=== PATIENT | male | born 1945 | race American Indian/Alaskan Native ===

== ENCOUNTER 2019-08-02 19:55 | Emergency (ER) | payer MEDICARE, OTHER ==
[2019-08-02 20:08] VITALS: BP 189/87; PULSE 91
[2019-08-02] MEDS ORDERED: Lidocaine 1% with EPINEPHrine 1:100,000 50 ML MDV INJECT ONE (20:08)
[2019-08-02] MEDS ORDERED: Bacitracin Oint 1 GM U/D Packet TOP ONE (20:08)
[2019-08-02] MEDS ORDERED: Acetaminophen/oxyCODONE 325-5 MG Tab PO ONE (20:09)
--- NOTE | 2019-08-02 20:12 | EDM.PDOC ---
ED HPI GENERAL MEDICAL PROBLEM - General Chief Complaint: Upper Extremity Injury/Pain Stated Complaint: FALL,HURT RT SHOULDER,CUT ON ELBOW Time Seen by Provider: 08/02/19 20:05 Source of Information: Reports: Patient History Limitations: Reports: No Limitations - History of Present Illness INITIAL COMMENTS - FREE TEXT/NARRATIVE: Lambert is a 74 year old male, DT up to date, tripped over daughter's dog and fell, struck right elbow in door jam sustaining a laceration and jammed right shoulder when he fell, c/o right shoulder pain. Denies hitting head, neck or back pain. Hasn't taken anything for pain, shoulder pain is worse with movement, especially with arm above head. Onset: Today Onset Time: 18:00 Right Shoulder Pain Score (Numeric/FACES): 3 - Related Data Allergies Allergy/AdvReac Type Severity Reaction Status Date / Time No Known Allergies Allergy Verified 08/02/19 20:08 Home Meds: Home Meds Doxazosin Mesylate 2 mg PO BEDTIME 12/28/12 [History] Insulin Detemir [Levemir] 80 units SUBCUT BEDTIME 12/28/12 [History] Lisinopril 10 mg PO DAILY 12/28/12 [History] Naproxen [Naprosyn] 500 mg PO BID 12/28/12 [History] Simvastatin 10 mg PO DAILY 12/28/12 [History] Gabapentin [Neurontin] 600 mg PO BID 01/31/13 [History] Baclofen 10 mg PO BID 12/18/18 [History] valACYclovir [Valtrex] 1,000 mg PO TID #21 tab 12/18/18 [Rx] Insulin Aspart [NovoLOG] 1 unit SQ ASDIRECTED 08/02/19 [History] Past Medical History HEENT History: Reports: Impaired Vision Cardiovascular History: Reports: High Cholesterol, Hypertension Gastrointestinal History: Reports: None Musculoskeletal History: Reports: None Neurological History: Reports: Other (See Below) Endocrine/Metabolic History: Reports: Diabetes, Type II Hematologic History: Reports: Blood Transfusion(s) - Past Surgical History Head Surgeries/Procedures: Reports: None HEENT Surgical History: Reports: Cataract Surgery Cardiovascular Surgical History: Reports: None GI Surgical History: Reports: Cholecystectomy, Colonoscopy Endocrine Surgical History: Reports: None Neurological Surgical History: Reports: None Musculoskeletal Surgical History: Reports: Shoulder Surgery Dermatological Surgical History: Reports: None Social & Family History - Caffeine Use Caffeine Use: Reports: Coffee Review of Systems - Review of Systems Review Of Systems: Comprehensive ROS is negative, except as noted in HPI. ED EXAM, GENERAL - Physical Exam Exam: See Below Exam Limited By: No Limitations General Appearance: Alert, WD/WN, No Apparent Distress Head: Atraumatic Neck: Normal Inspection, Supple, Non-Tender, Full Range of Motion. No: Tender Midline Respiratory/Chest: No Respiratory Distress Cardiovascular: Regular Rate, Rhythm, Other (Hypertension) Back Exam: Normal Inspection Extremities: Normal Inspection, Limited Range of Motion, Other (Tenderness to right humeral head to right upper shoulder, limited RoM with arm above head, radial pulses intact, strength 4/5 secondary to pain) Neurological: Alert, Oriented Skin Exam: Warm, Other (2.5 cm jagged laceration to right elbow) Lymphatic: No Adenopathy ED TRAUMA EXTREMITY PROCEDURES - Laceration/Wound Repair Right Elbow Lac/Wound Length In cm: 2.5 Appearance: Subcutaneous Distal NVT: Neuro & Vascular Intact, No Tendon Injury Anesthetic Type: Local Local Anesthesia - Lidocaine (Xylocaine): 1% with EPI Local Anesthetic Volume: 5cc Skin Prep: Chlorhexidine (Hibiciens), Saline Exploration/Debridement/Repair: No Foreign Material Found Closed With: Sutures Suture Size: 4-0 # of Sutures: 6 Suture Type: Prolene Course - Vital Signs Last Recorded V/S: Last Vital Signs Temp 36.7 C 08/02/19 20:08 Pulse 91 08/02/19 20:08 Resp 16 08/02/19 20:08 BP 189/87 H 08/02/19 20:08 Pulse Ox 99 08/02/19 20:08 Lambert is a 74 year old male, presents to the ED with right shoulder pain and right elbow laceration s/p fall. Please refer to HPI and focused exam. Elbow laceration repaired as noted in procedure note. Patient was given Percocet here for pain. Shoulder x-ray obtained no fracture appreciated. Keflex for infection prophylaxis given depth and nature of laceration. Oxycodone for severe pain if Tylenol ineffective. Patient placed in sling, instructed to follow up with PCP in one week for recheck of should contusion and suture removal. Reasons to return to the ED discussed. Patient agreeable to plan of care and discharged with a bus driver supervisor. - Orders/Labs/Meds Orders: Active Orders 24 hr Category Date Time Status Vaccines to be Administered [RC] PER UNIT ROUTINE Care 08/02/19 20:16 Active Shoulder Comp Rt [CR] Stat Exams 08/02/19 20:09 Taken Meds: Medications Discontinued Medications Generic Name Dose Route Start Last Admin Trade Name Abbey PRN Reason Stop Dose Admin Bacitracin 1 dose 08/02/19 20:08 Bacitracin Oint 1 Gm TOP 08/02/19 20:09 ONETIME ONE Diphtheria/Tetanus/Acell Pertussis 0.5 ml 08/02/19 20:16 Adacel IM 08/02/19 20:17 .ONCE ONE Lidocaine/Epinephrine 5 ml 08/02/19 20:08 Xylocaine 1% With Epinephrine 1:100,000 INJECT 08/02/19 20:09 ONETIME ONE Oxycodone/Acetaminophen 2 tab 08/02/19 20:09 Percocet 325-5 Mg PO 08/02/19 20:10 ONETIME ONE Departure - Departure Time of Disposition: 21:00 Disposition: Home, Self-Care 01 Condition: Good Clinical Impression: Contusion of shoulder, right Qualifiers: Encounter type: initial encounter Qualified Code(s): S40.011A - Contusion of right shoulder, initial encounter Laceration of right elbow Qualifiers: Encounter type: initial encounter Qualified Code(s): S51.011A - Laceration without foreign body of right elbow, initial encounter - Discharge Information Instructions: Laceration Care, Adult, Wound Care, Adult, How To Use a Sling, [id number], Contusion, [id number] Referrals: PCP,None [Primary Care Provider] - Forms: ED Department Discharge Additional Instructions: Wear sling for one week. Tylenol for pain, 650 mg every 4 hours as needed. Percocet for severe pain, no driving, this is a narcotic, may make you constipated, you can take colace if needed. Percocet does contain Tylenol, do not exceed more than 4,000 mg of Tylenol in a 24 hour period. Follow up with primary care in one week for suture removal and to have your shoulder rechecked. Start the antibiotics, Keflex, tonight to prevent infection at laceration site. Return here with any concerns or worsening symptoms. Sepsis Event Note (ED) - Evaluation Sepsis Screening Result: No Definite Risk - Focused Exam Vital Signs: Vital Signs Temp Pulse Resp BP Pulse Ox 08/02/19 20:08 36.7 C 91 16 189/87 H 99 08/02/19 20:06 36.7 C 91 16 189/87 H 99 - My Orders Last 24 Hours: My Active Orders 08/02/19 20:09 Shoulder Comp Rt [CR] Stat 08/02/19 20:16 Vaccines to be Administered [RC] PER UNIT ROUTINE - Assessment/Plan Last 24 Hours: My Active Orders 08/02/19 20:09 Shoulder Comp Rt [CR] Stat 08/02/19 20:16 Vaccines to be Administered [RC] PER UNIT ROUTINE
[2019-08-02] MEDS ORDERED: Diphtheria,Pertussis(Acell),Tetanus Vaccine 0.5 ML SDV IM ONE (20:16)
--- NOTE | 2019-08-04 10:00 | CR ---
Shoulder Comp Rt CLINICAL HISTORY: Fall, pain FINDINGS: There is moderate spurring at the AC joint. The there is some mild irregularity of the distal clavicle. This appearance is similar to a chest x-ray from 2015. The there is limited evaluation of the proximal humerus due to inability to position the patient. The there may be some foreshortening of the humeral neck. There is some cephalic the subluxation of the humerus which may be due to joint laxity. There are ossifications of the region of the coracoid process. This could be from old injury. This may represent loose body. IMPRESSION: Deformity AC joint is likely due to spurring. It appears similar to chest x-ray from 2015 Deformity the proximal humerus some of this is projectional. Humeral neck fracture is not excluded Superior subluxation of the humeral head suggests joint laxity. If clinically relevant short-term repeat study should be considered.
== END 2019-08-02 21:31 | disposition home or self-care (01) ==
LOC: JP.ED 19:55
DX: S51.011A Laceration without foreign body of right elbow, initial encounter (principal); S40.011A Contusion of right shoulder, initial encounter; E78.00 Pure hypercholesterolemia, unspecified; I10 Essential (primary) hypertension; E11.9 Type 2 diabetes mellitus without complications; Z79.4 Long term (current) use of insulin; Z23 Encounter for immunization; Z79.899 Other long term (current) drug therapy; W01.190A Fall on same level from slipping, tripping and stumbling with subsequent striking against furniture, initial encounter
CPT/HCPCS: 12001; 73030; 90471; 90715; 99283; A9270

== ENCOUNTER 2019-08-16 15:48 | Emergency (ER) | payer MEDICARE, OTHER ==
[2019-08-16 16:03] VITALS: BP 135/68; PULSE 66
--- NOTE | 2019-08-16 16:19 | EDM.PDOC ---
ED HPI GENERAL MEDICAL PROBLEM - General Chief Complaint: General Stated Complaint: REMOVE STICHES ELBOW Time Seen by Provider: 08/16/19 16:18 Source of Information: Reports: Patient - Related Data Allergies Allergy/AdvReac Type Severity Reaction Status Date / Time No Known Allergies Allergy Verified 08/16/19 16:08 Home Meds: Home Meds Doxazosin Mesylate 2 mg PO BEDTIME 12/28/12 [History] Insulin Detemir [Levemir] 80 units SUBCUT BEDTIME 12/28/12 [History] Lisinopril 10 mg PO DAILY 12/28/12 [History] Naproxen [Naprosyn] 500 mg PO BID 12/28/12 [History] Simvastatin 10 mg PO DAILY 12/28/12 [History] Gabapentin [Neurontin] 600 mg PO BID 01/31/13 [History] Baclofen 10 mg PO BID 12/18/18 [History] valACYclovir [Valtrex] 1,000 mg PO TID #21 tab 12/18/18 [Rx] Insulin Aspart [NovoLOG] 1 unit SQ ASDIRECTED 08/02/19 [History] Past Medical History HEENT History: Reports: Impaired Vision Cardiovascular History: Reports: High Cholesterol, Hypertension Gastrointestinal History: Reports: None Musculoskeletal History: Reports: None Neurological History: Reports: Other (See Below) Other Neuro History: aneurysm-"keeping an eye on it" Endocrine/Metabolic History: Reports: Diabetes, Type II Hematologic History: Reports: Blood Transfusion(s) - Past Surgical History Head Surgeries/Procedures: Reports: None HEENT Surgical History: Reports: Cataract Surgery Cardiovascular Surgical History: Reports: None GI Surgical History: Reports: Cholecystectomy, Colonoscopy Endocrine Surgical History: Reports: None Neurological Surgical History: Reports: None Musculoskeletal Surgical History: Reports: Shoulder Surgery Dermatological Surgical History: Reports: None Social & Family History - Tobacco Use Smoking Status *Q: Never Smoker - Caffeine Use Caffeine Use: Reports: Coffee - Recreational Drug Use Recreational Drug Use: No ED ROS GENERAL - Review of Systems Review Of Systems: Comprehensive ROS is negative, except as noted in HPI. ED EXAM, GENERAL - Physical Exam Exam: See Below Exam Limited By: No Limitations General Appearance: Alert, WD/WN, No Apparent Distress Eye Exam: Bilateral Eye: EOMI Ears: Normal External Exam, Hearing Loss Nose: Normal Inspection Throat/Mouth: Normal Inspection Neck: Normal Inspection, Full Range of Motion Respiratory/Chest: No Respiratory Distress Extremities: Other (scab with laceration right elbow sutures remain. Sutures are remove with some difficulty due to scab formation. Patient tolerated well. Nursing staff check to ensure all sutures removed and bandage applied. ) Course - Vital Signs Last Recorded V/S: Last Vital Signs Temp 36.4 C 08/16/19 16:07 Pulse 66 08/16/19 16:07 Resp 14 08/16/19 16:07 BP 135/68 08/16/19 16:07 Pulse Ox 98 08/16/19 16:07 Departure - Departure Time of Disposition: 16:21 Disposition: Home, Self-Care 01 Clinical Impression: Visit for suture removal - Discharge Information Instructions: Wound Closure Removal, Care After Referrals: Mary Johnson I, INTERLOCKER [Primary Care Provider] - Forms: ED Department Discharge Sepsis Event Note (ED) - Evaluation Sepsis Screening Result: No Definite Risk - Focused Exam Vital Signs: Vital Signs Temp Pulse Resp BP Pulse Ox 08/16/19 16:07 36.4 C 66 14 135/68 98 08/16/19 16:01 36.4 C 66 14 135/68 98
== END 2019-08-16 16:24 | disposition home or self-care (01) ==
LOC: JP.ED 15:48
DX: S51.011D Laceration without foreign body of right elbow, subsequent encounter (principal); E78.00 Pure hypercholesterolemia, unspecified; I10 Essential (primary) hypertension; E11.9 Type 2 diabetes mellitus without complications; Z79.899 Other long term (current) drug therapy; Z79.4 Long term (current) use of insulin; X58.XXXD Exposure to other specified factors, subsequent encounter
CPT/HCPCS: 99281